=== PATIENT | female | born 1945 | race Caucasian/White ===

== ENCOUNTER 2020-04-15 08:42 | Emergency (ER) | payer OTHER ==
--- OUTSIDE RECORDS SUMMARY | 2020-04-15 09:13 | XMS REPORT | Clinical Summary ---
:1945 Author Organization [facility] Address [address] [place] [address] Care Team Providers Name Role Phone Clarissa Bolaños MD Primary Care Provider Allergies Active Allergy Reactions Severity Noted Date Comments Oxycodone-Acetaminophen Itching High 04/11/2020 Eileen re body itching Sulfur GI Intolerance High 04/11/2020 Vomiting Medications Medication Sig Dispensed Refills Start Date End Date Status atenoloL (TENORMIN) Take 25 mg by 0 Active 25 MG tablet mouth every morning. losartan (COZAAR) Take 100 mg 0 Active 100 MG tablet by mouth every evening. spironolactone Take 50 mg by 0 A ctive (ALDACTONE) 50 MG mouth every tablet morning. amLODIPine (NORVASC) Take 10 mg by 0 Active 10 mg tablet mouth nightly. omeprazole Take 20 mg by 0 Activ e (PriLOSEC) 20 MG mouth capsule nightly. ARIPiprazole Take 10 mg by 0 Act dk (ABILIFY) 10 MG mouth tablet nightly. lamoTRIgine Take 250 mg 0 Active (LaMICtal) 100 MG by mouth tablet nightly. levothyroxine Take 50 mcg 0 Acti ve (SYNTHROID) 50 mcg by mouth tablet daily. atorvastatin Take 10 mg by 0 Act dk (LIPITOR) 10 mg mouth tablet nightly. aspirin 325 MG Take 325 mg 0 Act dk tablet by mouth daily. zinc acetate 50 mg Take 1 0 A ctive (zinc) capsule capsule by mouth daily. clopidogreL (PLAVIX) Take 1 tablet 30 tablet 0 04/15/202004/05 Active 75 mg tablet (75 mg total) by mouth daily. clopidogreL (PLAVIX) Take 1 tablet 30 tablet 11 04/15/202004/05 Discontinued 75 mg tablet (75 mg total) by mouth daily. Active Problems Problem Noted Date Bilateral carotid artery occlusion 04/12/2020 Encounters Date Type Specialty Care Team Description 04/12/2020 Surgery Procedural Angelito Bolaños Angiogram carot id Cardiology MD Clarissa bilateral 04/12/2020 - Hospital Encounter General Internal Angelito Bolaños Bilat eral carotid 04/14/2020 Medicine MD Clarissa artery occlusion Mario Valdez MD 04/12/2020 Travel 04/10/2020 Lab Lab Angelito Bolaños SOB (Eder MD breath) 04/10/2020 Travel 04/10/2020 Community Orders ADMIN Angelito Bolaños (joselinen Kindra MD breath) (Primar y Dx) after 04/15/2019 Surgical History Surgery Date Site/Laterality Comments FEMORAL ARTERY - FEMORAL ARTERY BYPASS GRAFT CHOLECYSTECTOMY HYSTERECTOMY Medical History Medical History Date Comments Carotid artery occlusion Hypertension Hyperlipidemia Disease of thyroid gland Social History Tobacco Use Types Packs/Day Years Used Date Former Smoker Smokeless Tobacco: Never Used Alcohol Use Drinks/Week oz/Week Comments Never Alcohol Habits Answer Date Recorded How often do you have a drink containing alcohol? Never 04/12/2020 How many drinks containing alcohol do you have on a typical Not asked day when you are drinking? How often do you have six or more drinks on one occasion? No t asked Sex Assigned at Date Recorded Not on file Job Start Date Occupation Industry Not on file Not on file Not on file COVID-19 Exposure Response Date Recorded In the last month, have you been in contact with No / Unsure 04/12/2020 5:11 AM PRIMARY TEACHER someone who was confirmed or suspected to have Coronavirus / COVID-19? Last Filed Vital Signs Vital Sign Reading Time Taken Comments Blood Pressure 145/59 04/14/2020 11:22 AM PRIMARY TEACHER Pulse 64 04/14/2020 11:22 AM PRIMARY TEACHER Temperature 37.5 C (99.5 F) 04/14/2020 11:22 AM PRIMARY TEACHER Respiratory Rate 20 04/14/2020 11:22 AM PRIMARY TEACHER Oxygen Saturation 98% 04/14/2020 11:22 AM PRIMARY TEACHER Inhaled Oxygen Concentration - - Weight 67.6 kg (149 lb) 04/12/2020 5:25 AM PRIMARY TEACHER Height 157.5 cm (5' 2") 04/12/2020 5:25 AM PRIMARY TEACHER Body Mass Index 27.25 04/12/2020 5:25 AM PRIMARY TEACHER Plan of Treatment Health Maintenance Due Date Last Done Comments COVID-19 VACCINE (#1) 1959 SHINGLES VACCINES (#1) 1993 65+ PNEUMOCOCCAL VACCINE (1 of 1 - PPSV23) 2008 INFLUENZA VACCINE 11/04/2019 Procedures Procedure Name Priority Date/Time Associated Comments Diagnosis POTASSIUM LEVEL Routine 04/14/2020 6:15 Results for this AM PRIMARY TEACHER procedure are i n the results section. ESTIMATED GFR Routine 04/14/2020 1:20 Results fo r this AM PRIMARY TEACHER procedure are i n the results section. BASIC METABOLIC PANEL Routine 04/14/2020 1:20 Re sults for this AM PRIMARY TEACHER procedure are i n the results section. CBC HEMOGRAM Routine 04/14/2020 1:20 Results for this AM PRIMARY TEACHER procedure are i n the results section. ESTIMATED GFR Routine 04/13/2020 5:30 Results fo r this AM PRIMARY TEACHER procedure are i n the results section. HC COMPLETE BLD COUNT Routine 04/13/2020 5:30 Re sults for this W/AUTO DIFF AM PRIMARY TEACHER procedure are i n the results section. COMPREHENSIVE Routine 04/13/2020 5:30 Results fo r this METABOLIC PANEL AM PRIMARY TEACHER procedure ar e in the results section. T4, FREE Routine 04/13/2020 5:30 Results for this AM PRIMARY TEACHER procedure are i n the results section. THYROID STIMULATING Routine 04/13/2020 5:30 Resu lts for this HORMONE AM PRIMARY TEACHER procedure are i n the results section. CBC HEMOGRAM Routine 04/13/2020 5:30 Results for this AM PRIMARY TEACHER procedure are i n the results section. CV CAROTID ARTERY Routine 04/12/2020 9:24 Bilateral carotid STENT W EMBOLIC AM PRIMARY TEACHER artery occlusion PROTECTION Procedure Note - Interface, Radiology Results In - 04/12/2020 8:07 PM PRIMARY TEACHER OPERATIVE NOTE SURGEON: Mario Valdez MD INFORMATICIST: Guicho Purdy MD. TITLE OF OPERATION: 1. Percutaneous translumina l angioplasty with stent, right common to internal carotid artery. 2. Left femoral angiogram w ith percutaneous closure device. PREOPERATIVE DIAGNOSIS: Symptomatic carotid artery o cclusive disease. POSTOPERATIVE DIAGNOSIS: Symptomatic carotid artery o cclusive disease. ANESTHESIA: Conscious sedation with Vers ed and fentanyl. ESTIMATED BLOOD LOSS: 20 mL. COMPLICATIONS: None. OPERATIVE COURSE: The patient is a 75-year-old woman under the care of my partner, Dr. Angelito Bolaños. She underwent a diagn ostic carotid angiography by Dr. Bolaños prior to my arriving in the catheterizat ion laboratory. She had had symptoms, which were suspicious, but not diagnost ic for carotid artery disease and noninvasive evaluation done as an outpat ient suggested severe to critical right internal carotid artery stenosis. As a result, she was advised to undergo carotid angiography and possible int ervention. I had evaluated the patient in the office and explained the phy siology, anatomy and recommended treatment options. She came to the catheterizat ion laboratory after being seen by stroke neurology service. Dr. Bolaños performed diagnostic selective carotid and intracranial angiography via left femoral approach prior to my arrival. I was called to the catheterization lab and revi ewed the studies. The patient does indeed have a 95% stenosis of the ostial t o proximal right internal carotid artery with minimal intracranial flow pr edominantly in the middle cerebral artery. There was no evidence of intracran ial aneurysm or significant distal intracranial carotid artery disease. As a result, I felt that she would be a good candidate for percutaneous interventio n and proceeded accordingly. The patient received a total of 9000 units of heparin with ACT greater than 250 seconds prior to start of th e procedure. The 4-Malawian arterial sheath, which had been inserted for diagno stic angiograms was exchanged for a 6-Malawian shuttle sheath. Utilizing an H1 cat heter and a 0.035 Wholey wire, the right distal common carotid was successfu lly cannulated and the sheath advanced to the distal common carotid. The dilator and wire were removed. Additional preprocedural angiograms were taken. Once the ACT was confirmed to be greater than 250 seconds, a NAV6 filter was s uccessfully placed in the very distal internal carotid artery and successfu lly deployed. The lesion was primarily stented with an 8 x 6 x 30 mm Xact stent and postdilated with a 5.5 x 15 mm noncompliant balloon. This resulted in f ull stent expansion, CHETAN-3 distal flow, no proximal or distal dissection or embo lization. Multiple orthogonal shots both extracranial and intracrania l were taken with the wire in place and subsequently with the wire removed. Agai n, there was excellent flow with no evidence of angiographic complications. The sheath was then withdrawn to the left external iliac artery and angiogram c onfirmed proper arteriotomy placement. Thus, the vessel was successfully clos ed with a 6-Malawian Perclose ProGlide suture system with good hemostasis achieve d. The patient did receive 600 mg of clopidogrel and 325 mg of aspirin prior to leaving the catheterization laboratory. She was transferred to the PACU for observation following which she will be admitted overnight for hemodynamic ob servation with probable discharge tomorrow morning. Overall, she tolerated the p rocedure well. ACTIVATED CLOTTING Routine 04/12/2020 8:37 AM Re sults for this TIME PRIMARY TEACHER procedure are i n the results section . ECG PRE/POST OP STAT 04/12/2020 5:37 AM Resul ts for this PRIMARY TEACHER procedure are i n the results section . COVID-19 QUALITATIVE Routine 04/10/2020 10:28 AM SOB (shortnes s Results for this PCR PRIMARY TEACHER of breath) procedure are i n the results section . after 04/15/2019 Results Potassium level (04/14/2020 6:15 AM PRIMARY TEACHER) Pathologist Sig nature Potassium 4.2 3.5 - 5.0 mEq/L [facility] L Specimen Plasma Performing Organization Address City/[facility] Phon e Number [facility] DEPARTMENT OF PATHOLOGY AND [address] [place] [address] [address] Estimated GFR (04/14/2020 1:20 AM PRIMARY TEACHER)Only the most recent of2 resultswithin the time period is included. Estimated GFR 61 mL/min/1.73 [facility] Comment: m2 HOSPITAL Catergory Units Interpretation G1 >=90 Normal or high G2 60-89 Mildly decreased G3a 45-59 Mildly to moderately decreas ed G3b 30-44 Moderately to severely decre ased G4 15-29 Severely decreased G5 <15 Kidney failure The eGFR was calculated using the Chronic Kidney Disea se Epidemiology Collaboration (CKD-EPI) equation. Interpretation is based on recommendations of the National Kidney Foundation-Kidney Disease Outcomes Harshad lity Initiative (NKF-KDOQI) published in 2014. Specimen Plasma Performing Organization Address City/[facility] Phon e Number [facility] DEPARTMENT OF PATHOLOGY AND [address] [place] [address] [phone] [place] [address] CBC hemogram (04/14/2020 1:20 AM PRIMARY TEACHER)Only the most recent of2 resultswithin the time period is included. Pathologist [facility] WBC 6.03 4.50 - 11.00 k/uL [facility] RBC 2.96 (L) 4.20 - 5.50 m/uL [facility] HGB 9.8 (L) 12.0 - 16.0 g/dL [facility] HCT 30.8 (L) 37.0 - 47.0 % [facility] MCV 104.1 (H) 82.0 - 100.0 fL [facility] MCH 33.1 27.0 - 34.0 pg [facility] MCHC 31.8 31.0 - 37.0 g/dL [facility] RDW - SD 45.2 37.0 - 55.0 fL [facility] MPV 11.1 8.8 - 13.2 fL [facility] Platelet count 159 150 - 400 k/uL [facility] Nucleated RBC 0.00 /100 WBC [facility] Specimen Plasma Performing Organization Address City/State/ZIP Code Phon e Number [facility] DEPARTMENT OF PATHOLOGY AND [address] [place] [address] [phone] [address] Basic metabolic panel (04/14/2020 1:20 AM PRIMARY TEACHER) [facility] Sodium 141 135 - 148 mEq/L [facility] Potassium SEE COMMENT 3.5 - 5.0 mEq/L [facility] Comment: HOSPITAL Footnote--------- Unable to perform testing, specimen is HEMOLYZED. Re collect requested for _K__ (tests). NATE [id number] (name /location) notified by PXN_ (tech ID) at 04/14/2020 02:37 (date/time ). Credit issued. Chloride 113 (H) 98 - 112 mEq/L [facility] CO2 20 (L) 24 - 31 mEq/L [facility] Anion gap 8@ANIO 7 - 15 mEq/L [facility] BUN 13 8 - 23 mg/dL [facility] Creatinine 0.91 (H) 0.50 - 0.90 [facility] mg/dL HOSPITAL Glucose 97 65 - 99 mg/dL [facility] Calcium 8.2 (L) 8.8 - 10.2 [facility] mg/dL HOSPITAL Specimen Plasma Performing Organization Address City/[facility] Phon e Number [facility] DEPARTMENT OF PATHOLOGY AND [address] [place] [address] [phone] [address] CBC with platelet and differential (04/13/2020 5:30 AM PRIMARY TEACHER) WBC 6.54 4.50 - 11.00 [facility] k/uL HOSPITAL RBC 3.13 (L) 4.20 - 5.50 [facility] m/uL [facility] HGB 10.4 (L) 12.0 - 16.0 [facility] gdL [facility] HCT 33.2 (L) 37.0 - 47.0 % [facility] MCV 106.1 (H) 82.0 - 100.0 [facility] MCH 33.2 27.0 - 34.0 pg [facility] MCHC 31.3 31.0 - 37.0 [facility] g/[facility] RDW - SD 47.3 37.0 - 55.0 fL [facility] MPV 11.2 8.8 - 13.2 [facility] Platelet count 171 150 - 400 k/uL [facility] Nucleated RBC 0.00 /100 WBC [facility] Neutrophils 61.7 39.0 - 69.0 % [facility] Lymphocytes 25.4 25.0 - 45.0 % [facility] Monocytes 9.5 0.0 - 10.0 % [facility] Eosinophils 2.6 0.0 - 5.0 % [facility] Basophils 0.3 0.0 - 1.0 % [facility] Immature granulocytes 0.5Comment: 0.0 - 1.0 % [facility] "Immature [facility] granulocytes" (promyelocytes , myelocytes, metamyelocytes ) Specimen Plasma Performing Organization Address City/[facility] Phon e Number [facility] DEPARTMENT OF PATHOLOGY AND [address] [place] [address] [phone] [address] Thyroid stimulating hormone (04/13/2020 5:30 AM PRIMARY TEACHER) Pathologist Sig nature TSH 2.15 0.27 - 4.20 uIU/mL [facility] Specimen Plasma Performing Organization Address City/[facility] Phon e Number [facility] DEPARTMENT OF PATHOLOGY AND [address] [place] [address] [phone] [address] T4, free (04/13/2020 5:30 AM PRIMARY TEACHER) Pathologist Sig nature T4, free 1.0 0.9 - 1.7 ng/dL [facility] L Specimen Plasma Performing Organization Address City/[facility] Phon e Number [facility] DEPARTMENT OF PATHOLOGY AND [address] [place] [address] [phone] [address] Comprehensive metabolic panel (04/13/2020 5:30 AM PRIMARY TEACHER) Sodium 140 135 - 148 [facility] mEq/L [facility] Potassium 4.2 3.5 - 5.0 [facility] mEq/L [facility] Chloride 113 (H) 98 - 112 [facility] mEq/L [facility] CO2 17 (L) 24 - 31 mEq/L [facility] Anion gap 10@ANIO 7 - 15 mEq/L [facility] BUN 19 8 - 23 mg/dL [facility] Creatinine 1.01 (H) 0.50 - 0.90 [facility] mg/dL [facility] Glucose 97 65 - 99 mg/dL [facility] Calcium 8.5 (L) 8.8 - 10.2 [facility] mg/dL [facility] Protein 5.8 (L) 6.3 - 8.3 [facility] Comment: g/dL [facility] - [place] 4.6-7.0 g/dL 1 week 4.4-7.6 g/dL 7 months-1year 5.1-7.3 g/dL 1-2 years 5.6-7.5 g/dL >3 years 6.0-8.0 g/dL 18-150 6.3-8.3 g/dL Albumin 2.9 (L) 3.5 - 5.0 [facility] g/dL [facility] A/G ratio 1.0 0.7 - 3.8 [facility] Alkaline phosphatase 110 (H) 35 - 104 U/L [facility] AST 23 10 - 35 U/L [facility] ALT 20 5 - 50 U/L [facility] Total bilirubin 0.3 0.0 - 1.2 [facility] mg/dL HOSPITAL Specimen Plasma Performing Organization Address [facility] Phon e Number [facility] DEPARTMENT OF PATHOLOGY AND [address] [place] [address] [phone] [address] Activated clotting time (04/12/2020 8:37 AM PRIMARY TEACHER) Activated clotting 252 (H) 96 - 152 sec [facility] time Comment: HOSPITAL Prom Burn Off Operator Name: Garcia Davidson Device ID: [id number] Specimen Performing Organization Address [facility] Phon e Number [facility] DEPARTMENT OF PATHOLOGY AND [address] [place] [address] [phone] [address] ECG Pre/Post Op (04/12/2020 5:37 AM PRIMARY TEACHER) Pathologist Sig nature Ventricular rate 62 [facility] Atrial rate 62 [facility] ND interval 190 [facility] QRSD interval 86 [facility] QT interval 428 [facility] QTC interval 434 [facility] P axis 1 42 [facility] QRS axis 1 7 [facility] T wave axis 29 [facility] EKG impression Normal sinus rhythm-Low [facility] voltage QRS-Borderline ECG-No previous ECGs available-Electronicall y Signed By Jazmín JORDAN, Eric Tirado ([id number]) on 04/12/2020 8:49:09 PM Specimen Narrative Performed At This result has an attachment that is no t available. Performing Organization Address [facility] Phon e Number [facility] MUSE [address] [place] [phone] COVID-19 qualitative PCR (04/10/2020 10:28 AM PRIMARY TEACHER) Interpretation Negative results do not prec lude 2019-nCoV infection and should not be used as the sole basis for treatment or other patient management decisions. Negative results must be combined with clinical observations, patient history, and epidemiological [facility] information. [facility] COVID-19 qualitative Not-Detected Not-Detecte [facility] PCR result d [facility] COVID-19 qualitative See link below for [facility] PCR PDF Lab CONFUCIANISM ReportComment: Case HOSPITAL Number: [id number] Specimen Nasopharyngeal swab Performing Organization Address City/State/ZIP Code Phon e Number [facility] DEPARTMENT OF PATHOLOGY AND [address] [place], [place] [address] GENOMIC MEDICINE [facility] [address] [place] [address] [facility] after 04/15/2019 Insurance Payer Benefit Plan / Subscriber ID Effective Dates Phone Addre ss Type Group MEDICARE MEDICARE PART A [id number] 2003-Present [facility] [place] Medicare AND B Advance Directives For more information, please contact: [phone] Type Date Recorded Patient Controls Engineer Explanati on Advance Directives, Living Will and Medical Power of Atm Manager
--- OUTSIDE RECORDS SUMMARY | 2020-04-15 09:14 | XMS REPORT | Continuity of Care Document ---
:1945 Author Organization [facility] t Address [facility] 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 04-12 Methodi artery artery 00:00: st occlusion occlusion 00 Allergies, Adverse Reactions, Alerts Allergy Allergy Status Severity Reaction(s) Onset Inactive Treating Comm ents Source Name Type Date Date Clinician Oxycodon Propensi Active Itching Severe [place] on e-Acetam ty to 04-11 body Methodi inophen adverse 00:00: itching st reaction 00 s to drug Sulfur Propensi Active GI Vomiting [place] ty to Intolerance 04-11 Metho di adverse 00:00: st reaction 00 s to drug Social History Social Habit Start Date Stop Date Quantity Comments Source History [facility] Meth odist Alcohol Std Drinks History [facility] Meth odist Alcohol Binge Sex Assigned At [facility] ethodist Exposure to Not sure [place] Metho dist SARS-CoV-2 (event) Tobacco use and 2020-04-12 2020-04-12 Never used Migel Melgoza ethodist exposure 00:00:00 00:00:00 Alcohol intake 2020-04-12 2020-04-12 Lifetime Migel Sanders thodist 00:00:00 00:00:00 non-drinker (finding) History SDOH 2020-04-12 2020-04-12 1 [place] Meth odist Alcohol Frequency 00:00:00 00:00:00 Smoking Status Start Date Stop Date Source Former smoker 2020-04-12 00:00:00 2020-04-12 00:00:00 Migel Scott Medications Ordered Filled Start Stop Current Ordering Indication Dosage Frequency Signature Comments Components Source Medication Medication Date Date Medication? Clinician (SIG) Name Name clopidogreL 2021- Yes 75mg QD Take 1 Gene ston (PLAVIX) 75 04-15 tablet (75 M ethodi mg tablet 00:00: 23:59 mg total) st 00 :00 by mouth daily. clopidogreL 2020- No 75mg QD Take 1 Gene ston (PLAVIX) 75 04-15 tablet (75 M ethodi mg tablet 00:00: 00:00 mg total) st 00 :00 by mouth daily. atenoloL Yes 25mg QD Take 25 mg Gene ston (TENORMIN) 1-10 by mouth Metho di 25 MG 12:48: every st tablet 29 morning. losartan Yes 100mg QD Take 100 [place] (COZAAR) 1-10 mg by Methodi 100 MG 12:48: mouth st tablet 29 every evening. spironolact Yes 50mg QD Take 50 mg [place] one 1-10 by mouth Methodi (ALDACTONE) 12:48: every st 50 MG 29 morning. tablet amLODIPine Yes 10mg QD Take 10 mg [place] (NORVASC) 1-10 by mouth Method i 10 mg 12:48: nightly. st tablet 29 omeprazole Yes 20mg QD Take 20 mg [place] (PriLOSEC) 1-10 by mouth Metho di 20 MG 12:48: nightly. st capsule 29 ARIPiprazol Yes 10mg QD Take 10 mg [place] e (ABILIFY) 1-10 by mouth Meth ritu 10 MG 12:48: nightly. st tablet 29 lamoTRIgine Yes 250mg QD Take 250 [place] (LaMICtal) 1-10 mg by Methodi 100 MG 12:48: mouth st tablet 29 nightly. levothyroxi Yes 50ug QD Take 50 Gene ston ne 1-10 mcg by Methodi (SYNTHROID) 12:48: mouth st 50 mcg 29 daily. tablet atorvastati Yes 10mg QD Take 10 mg [place] n (LIPITOR) 1-10 by mouth Meth ritu 10 mg 12:48: nightly. st tablet 29 aspirin 325 Yes 325mg QD Take 325 [place] MG tablet 1-10 mg by Methodi 12:48: mouth st 29 daily. zinc Yes 1{capsu QD Take 1 L[place] acetate 50 1-10 le} capsule by Met hodi mg (zinc) 12:48: mouth st capsule 29 daily. Vital Signs Vital Name Observation Time Observation Value Comments Source Systolic blood 2020-04-14 11:22:44 145 mm[Hg] Rubito n Faith pressure Diastolic blood 2020-04-14 11:22:44 59 mm[Hg] Balbir on Faith pressure Heart rate 2020-04-14 11:22:44 64 /min Migel Scott Body temperature 2020-04-14 11:22:44 37.5 Jennifer Rubi ton Faith Respiratory rate 2020-04-14 11:22:44 20 /min Rubi ton Faith Oxygen saturation in 2020-04-14 11:22:44 98 /min Migel Scott Arterial blood by Pulse oximetry Body height 2020-04-12 05:25:00 157.5 cm Migel Scott Body weight 2020-04-12 05:25:00 67.586 kg iMgel Scott BMI 2020-04-12 05:25:00 27.25 kg/m2 Migel Scott Procedures Procedure Date / Time Performed Performing Clinician [facility]ly [facility] e POTASSIUM LEVEL 2020-04-14 06:15:00 Mario Valdez ethodi CBC HEMOGRAM 2020-04-14 01:20:00 Guicho Purdy thodist BASIC METABOLIC PANEL 2020-04-14 01:20:00 Mario Valdez ESTIMATED GFR 2020-04-14 01:20:00 Mario Valdez M ethodist CBC HEMOGRAM 2020-04-13 05:30:00 Guicho Purdy Migel Me thodist THYROID STIMULATING 2020-04-13 05:30:00 Liya Bolaños HORMONE T4, FREE 2020-04-13 05:30:00 Liya Bolaños COMPREHENSIVE METABOLIC 2020-04-13 05:30:00 Mami, Liya Scott PANEL HC COMPLETE BLD COUNT 2020-04-13 05:30:00 Mami, Liya Scott W/AUTO DIFF ESTIMATED GFR 2020-04-13 05:30:00 Liya Bolaños CV CAROTID ARTERY STENT W 2020-04-12 09:24:55 Mami, Liya Scott EMBOLIC PROTECTION ACTIVATED CLOTTING TIME 2020-04-12 08:37:00 Liya Bolaños ECG PRE/POST OP 2020-04-12 05:37:11 Liya Bolaños COVID-19 QUALITATIVE PCR 2020-04-10 10:28:00 Liya Bolaños Plan of Care Planned Activity Planned Date Details Comments Source Future Scheduled 2019-11-04 INFLUENZA VACCINE Melba Scott Test 00:00:00 [code = INFLUENZA VACCINE] Future Scheduled 2008 65+ PNEUMOCOCCAL Migel Scott Test 00:00:00 VACCINE (1 of 1 - PPSV23) [code = 65+ PNEUMOCOCCAL VACCINE (1 of 1 - PPSV23)] Future Scheduled 1993 SHINGLES VACCINES (#1) Maeve Scott Test 00:00:00 [code = SHINGLES VACCINES (#1)] Future Scheduled 1959 COVID-19 VACCINE (#1) Tonio Scott Test 00:00:00 [code = COVID-19 VACCINE (#1)] Encounters Start End Encounter Admission Attending Care Care Encounter Source Date/Time Date/Time Type Type Clinicians Facility Department ID 2020-04-12 2020-04-14 Inpatient [place] [id number] [place] [address] 00:00:00 00:00:00 MARIO [address] 2020-04-10 2020-04-10 Outpatient HUST, [facility] [id number] [place] 00:00:00 00:00:00 LIYA [address] Results Test Description Test Time Test Comments Results Result Comments Source Potassium level 2020-04-14 08:52:04 Test Item Value Reference Range Interpretation Comme nts Potassium (test code = 2823-3) 4.2 3.5- 5.0 mEq/L [place] [facility] [id number] 02:37:27 Test Item Value Reference Range Interpretation Comments Sodium (test code = 141 135- 148 mEq/L 2951-2) Potassium (test code = SEE COMMENT 3.5- 5.0 mEq/L Bridgett tnote---------U 2823-3) nable to perfor m testing, specim en is HEMOLYZED. Recollect requested for _ K__ (tests). NATE LOMBARDI/WT1Vaughn (name/location) notified by PXN _ (tech ID) at 04/14/2020 02: 37 (date/time). Credit issued. Chloride (test code = 113 98- 112 mEq/L H 2074-0) CO2 (test code = 2027-) 20 24- 31 mEq/L L Anion gap (test code = 8@ANIO 7- 15 mEq/L 79175-5) BUN (test code = 3094-0) 13 mg/dL 8-23 Creatinine (test code = 0.91 mg/dL 0.5-0.9 H 2160-0) Glucose (test code = 97 mg/dL 65-99 2345-7) Calcium (test code = 8.2 mg/dL 8.8-10.2 L 15560-3) Lab Interpretation (test Abnormal code = 89011-6) [place] [facility] [id number] 02:37:27 Test Item Value Reference Range Interpretation Comments Estimated GFR (test 61 mL/min/1.73 m2 Caterg ory Units code = 5488) InterpretationG 1 >=90 Normal or highG2 60-89 Mildly lrqeydnxwL3o 45-59 Mildly to mode rately scnngvhrgS7a 30-44 Moderately to severely decreasedG4 15-29 Severely decre asedG5 <15 Kidn ey failureThe eGFR was calculated oliver simpson the Chronic Kidney Disease Epidemiology Co llaboration (CKD-EPI) equat ion. Interpretation is based on recommendations of the National Kidney Foundation-Kidn ey Disease Outcomes Qualit y Initiative (NKF-KDOQI) pub lished in 2014. Migel [facility] [id number] 02:05:12 Test Item Value Reference Range Interpretation Comments WBC (test code = 72127-4) 6.03 4.50- 11.00 k/uL RBC (test code = 58410-7) 2.96 m/uL 4.2-5.5 L HGB (test code = 718-7) 9.8 g/dL 12-16 L HCT (test code = 4544-3) 30.8 % 37-47 L MCV (test code = 787-2) 104.1 fL 82-100 H MCH (test code = 785-6) 33.1 pg 27-34 MCHC (test code = 786-4) 31.8 g/dL 31-37 RDW - SD (test code = 39436-5) 45.2 fL 37-55 MPV (test code = 88900-7) 11.1 fL 8.8-13.2 Platelet count (test code = 159 150- 400 k/uL 08888-0) Nucleated RBC (test code = 0.00 /100 WBC 91957-9) Lab Interpretation (test code = Abnormal 92579-2) Lainez JoiistT4, [id number] 07:53:52 Test Item Value Reference Range Interpretation Comments T4, free (test code = 3024-7) 1.0 ng/dL 0.9-1.7 [facility] [id number] 07:53:52 Test Item Value Reference Range Interpretation Comments TSH (test code = 3016-3) 2.15 0.27- 4.20 uIU/mL [facility] [id number] 07:48:21 Test Item Value Reference Range Interpretation Comments Sodium (test code = 140 135- 148 mEq/L 2951-2) Potassium (test code = 4.2 3.5- 5.0 mEq/L 2823-3) Chloride (test code = 113 98- 112 mEq/L H 2075-0) CO2 (test code = 2027-9) 17 24- 31 mEq/L L Anion gap (test code = 10@ANIO 7- 15 mEq/L 06136-7) BUN (test code = 3094-0) 19 mg/dL 8-23 Creatinine (test code = 1.01 mg/dL 0.5-0.9 H 2160-0) Glucose (test code = 97 mg/dL 65-99 2345-7) Calcium (test code = 8.5 mg/dL 8.8-10.2 L 10779-6) Protein (test code = 5.8 g/dL 6.3-8.3 L -[place] n 2885-2) 4.6-7.0 g/dL1 week 4.4-7 .6 g/dL7 months-1y ear 5.1-7 .3 g/dL1-2 years 5.6-7 .5 g/dL>3 years 6.0-8 .0 g/fH74-189 6.3-8 .3 g/dL Albumin (test code = 2.9 g/dL 3.5-5 L 1751-7) A/G ratio (test code = 1.0 0.7-3.8 1759-0) Alkaline phosphatase 110 U/L 35-104 H (test code = 6768-6) AST (test code = 1919-8) 23 U/L 10-35 ALT (test code = 1742-6) 20 U/L 5-50 Total bilirubin (test 0.3 mg/dL 0-1.2 code = 1974-2) Lab Interpretation (test Abnormal code = 77101-4) [facility] with platelet and [id number] 07:43:56 Test Item Value Reference Range Interpretation Comments WBC (test code = 25110-0) 6.54 4.50- 11.00 k/uL RBC (test code = 81934-4) 3.13 m/uL 4.2-5.5 L HGB (test code = 718-7) 10.4 g/dL 12-16 L HCT (test code = 4544-3) 33.2 % 37-47 L MCV (test code = 787-2) 106.1 fL 82-100 H MCH (test code = 785-6) 33.2 pg 27-34 MCHC (test code = 786-4) 31.3 g/dL 31-37 RDW - SD (test code = 47.3 fL 37-55 45678-6) MPV (test code = 69362-9) 11.2 fL 8.8-13.2 Platelet count (test code 171 150- 400 k/uL = 65636-2) Nucleated RBC (test code 0.00 /100 WBC = 77017-5) Neutrophils (test code = 61.7 % 39-69 21529-6) Lymphocytes (test code = 25.4 % 25-45 78880-9) Monocytes (test code = 9.5 % 0-10 97228-3) Eosinophils (test code = 2.6 % 0-5 27125-1) Basophils (test code = 0.3 % 0-1 07515-6) Immature granulocytes 0.5 % 0-1 "Immat ure (test code = 30242-4) granul ocytes" (promyelocytes, myelocytes, metamyelocytes) Lab Interpretation (test Abnormal code = 28710-9) Migel TamezistECG Pre/Post [id number] 20:49:13 Test Item Value Reference Range Interpretation Comments Ventricular rate (test 62 code = 253) Atrial rate (test code = 62 255) [place] interval (test code = 190 266) QRSD interval (test code 86 = 260) QT interval (test code = 428 264) QTC interval (test code 434 = 265) P axis 1 (test code = 42 267) QRS axis 1 (test code = 7 268) T wave axis (test code = 29 270) EKG impression (test Normal sinus code = 273) rhythm-Low voltage QRS-Borderline ECG-No previous ECGs available-Electronica lly Signed By Eric Noyola MD ([id number]) on 04/12/2020 8:49:09 PM Migel [facility] clotting [id number] 08:42:34 Test Item Value Reference Range Interpretation Comments Activated clotting time 252 96- 152 sec H Oper ator Name: Garcia (test code = 5298) IsidrodenisAyaan ice ID: [id number] Lab Interpretation (test Abnormal code = 06645-1) Migel TamezistCOVID-19 qualitative [id number] 21:38:48 Test Item Value Reference Range Interpretation Comments Interpretation (test Negative results do code = 7429363) not preclude 2019-nCoV infection and should not be used as the sole basis for treatment or other patient management decisions. Negative results must be combined with clinical observations, patient history, and epidemiological information. COVID-19 qualitative Not-Detected Not-Detected PCR result (test code = 25799-2) COVID-19 qualitative See link below for C ase Number: PCR (test code = PDF Lab Report [id number]) Migel Scott
[2020-04-15] MEDS ORDERED: KETOROLAC 30 MG/ML INJ ONE ×2 (09:25→09:29)
[2020-04-15] MEDS ORDERED: FAMOTIDINE 20 MG/2 ML VIAL IV ONE (09:25)
[2020-04-15] MEDS ORDERED: METHOCARBAMOL 1,000 MG/10 ML VIAL IV ONE (09:25)
[2020-04-15] MEDS ORDERED: ONDANSETRON 4 MG/2 ML VIAL ONE (09:25)
[2020-04-15] MEDS ORDERED: NA CHLORIDE 0.9% 100 ML ONE (09:25)
[2020-04-15] MEDS ORDERED: METHYLPREDNISOLONE 125 MG INJ ONE (09:25)
--- NOTE | 2020-04-15 09:35 | RAD REPORT ---
EXAM DESCRIPTION: CTSpine Lumbar Wo Con04/15/2020 9:23 am CLINICAL HISTORY: Left hip radiculopathy COMPARISON: None TECHNIQUE: Computed axial tomography lumbar spine was obtained with coronal and sagittal reconstruct ion. All CT scans are performed using dose optimization technique as appropriate and may include automated exposure control or mA/KV adjustment according to patient size. FINDINGS: No fracture is seen. No dislocation is noted. Left lateral disc bulges L1-2 and L2-3. Disc bulge, ligamentum flavum facet hypertrophy L3-4 narrows the thecal sac to 9 millimeters. Slight anterior subluxation L4 on L5. Disc bulge, ligamentum flavum and facet hypertrophy narrow the thecal sac 9 millimeters. Mild narrowing of the neural foramina bilaterally Mild spondylosis L5-S1 IMPRESSION: Negative for a lumbar fracture. 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 If patient's symptoms persist MRI lumbar spine would be recommended
--- NOTE | 2020-04-15 11:03 | ER ---
Nurse's Notes [facility] Name: Stephanie Carballo Age: 75 yrs Sex: Female : 1945 Arrival Date: 04/15/2020 Time: 08:48 Bed 19 Private MD: Diagnosis: Low back pain;Muscle spasm of back;Muscle spasm Presentation: 04/15 08:53 Chief complaint: Patient states: low back pain that radiates to L hip/ buttock area ss that began Wednesday before she was discharged from [facility]. Pt reports that when she was being discharged, she could barely stand. They gave her Tylenol which didn't help. Pt also reports another doctor had called her in Tramadol which has not helped her pain at all either. Coronavirus screen: Client denies travel out of the [place] in the last 14 days. Initial Sepsis Screen: Does the patient meet any 2 criteria? No. Patient's initial sepsis screen is negative. Does the patient have a suspected source of infection? No. Patient's initial sepsis screen is negative. Onset of symptoms was April 13, 2020. 08:53 Acuity: JIMBO 3 ss 08:57 Ebola Screen: No symptoms or risks identified at this time. Risk Assessment: Do you ph want to hurt yourself or someone else? Patient reports no desire to harm self or others. 08:57 Method Of Arrival: Wheelchair ph Historical: - Allergies: 09:06 Percocet; ss 09:06 Sulfa (Sulfonamide Antibiotics); ss - Immunization history:: Adult Immunizations unknown. - Social history:: Smoking status: Patient denies any tobacco usage or history of. Screenin:57 Abuse screen: Denies threats or abuse. Denies injuries from another. Nutritional ph screening: No deficits noted. Tuberculosis screening: No symptoms or risk factors identified. Fall Risk None identified. Assessment: 08:57 Reassessment: Dr Paula at bedside to assess pt. ph 09:15 General: Appears in no apparent distress. uncomfortable, well groomed, Behavior is ph calm, cooperative, appropriate for age. Pain: Complains of pain in low back area Pain radiates to left gluteus rodrigo. Neuro: Level of Consciousness is awake, alert, obeys commands, Oriented to person, place, time, situation. Cardiovascular: Capillary refill < 3 seconds in bilateral fingers Patient's skin is warm and dry. Respiratory: Airway is patent Respiratory effort is even, unlabored, Respiratory pattern is regular, symmetrical. GI: No signs and/or symptoms were reported involving the gastrointestinal system. Derm: Skin is intact, is healthy with good turgor, Skin is pink, warm \T\ dry. Musculoskeletal: Circulation, motion, and sensation intact. Range of motion: intact in all extremities. 10:30 Reassessment: Patient appears in no apparent distress at this time. Patient and/or ph family updated on plan of care and expected duration. Pain level reassessed. Patient is alert, oriented x 3, equal unlabored respirations, skin warm/dry/pink. Pt ambulated to restroom w/ no difficulty noted, report that pain is worse when changing to sitting or standing positions. Vital Signs: 09:07 Temp 98.7(TE); ph 09:30 BP 153 / 73; Pulse 73; Resp 18; Pulse Ox 98% on R/A; ph 10:32 BP 141 / 55; Pulse 63; Resp 18; Temp 97.2; Pulse Ox 96% on R/A; ph ED Course: 08:48 Patient arrived in ED. ds1 08:54 Nishant Paula MD is Attending Physician. kdr 08:57 Crystal Gonzalez RN is Primary Nurse. ph 08:58 Arm band placed on Patient placed in an exam room, on a stretcher. ph 08:58 Patient has correct armband on for positive identification. Bed in low position. Call ph light in reach. Side rails up X 1. Pulse ox on. NIBP on. Door closed. Noise minimized. Warm blanket given. 09:05 Triage completed. ss 09:23 CT Lumbar Spine Wo Con In Process Unspecified. EDMS 10:00 Inserted saline lock: 22 gauge in right antecubital area, using aseptic technique. ph 11:00 No provider procedures requiring assistance completed. ph 11:05 IV discontinued, intact, bleeding controlled, No redness/swelling at site. Pressure ph dressing applied. Administered Medications: 09:58 Drug: TORadol - Ketorolac 15 mg Route: IVP; Site: right antecubital; ph 11:00 Follow up: Response: No adverse reaction; Pain is decreased ph 09:58 Drug: Pepcid 20 mg Route: IVP; Site: right antecubital; ph 11:00 Follow up: Response: No adverse reaction ph 09:59 Drug: SOLU-Medrol 80 mg Route: IVP; Site: right antecubital; ph 11:00 Follow up: Response: No adverse reaction ph 10:00 Drug: Zofran (Ondansetron) 4 mg Route: IVP; Site: right antecubital; ph 11:00 Follow up: Response: No adverse reaction ph 10:00 Drug: Robaxin 500 mg Route: IVPB; Infused Over: 1 hrs; Site: right antecubital; ph 18:08 Follow up: Response: No adverse reaction; Pain is decreased; IV Status: Completed ph infusion; IV Intake: 100ml Intake: 18:08 IV: 100ml; Total: 100ml. ph Outcome: 11:02 Discharge ordered by . kdr 11:12 Patient left the ED. ph 11:12 Discharged to home ambulatory. ph 11:12 Condition: improved 11:12 Discharge instructions given to patient, Instructed on discharge instructions, follow up and referral plans. medication usage, Demonstrated understanding of instructions, follow-up care, medications, Prescriptions given X 4. Signatures: Dispatcher [employer] EDMS Nishant Paula MD MD kdr Mario, Qian ds1 Nahomi Jin RN RN Crystal Gonzalez RN RN ph Corrections: (The following items were deleted from the chart) 18:06 10:30 Reassessment: Patient appears in no apparent distress at this time. Patient ph and/or family updated on plan of care and expected duration. Pain level reassessed. Patient is alert, oriented x 3, equal unlabored respirations, skin warm/dry/pink. ph
--- NOTE | 2020-04-15 11:03 | EDPHYS ---
Physician Documentation [facility] Name: Stephanie Carballo Age: 75 yrs Sex: Female : 1945 Arrival Date: 04/15/2020 Time: 08:48 Bed 19 Private MD: ED Physician Nishant Paula HPI: 04/15 09:09 This 75 yrs old Female presents to ER via Wheelchair with complaints of Back kdr Pain, Leg Pain. 09:09 The patient presents with pain that is acute, with no known mechanism of injury. The kdr symptoms are located in the low back. Onset: The symptoms/episode began/occurred gradually, The patient initially began to have pain on Wednesday after she completed a 24 hour supine period s/p right carotid artery stenting. Gradually between then and now, the pain has steadily worsened. The pain radiates down into her buttock on the left side. The pain radiates to the left gluteus rodrigo. Associated signs and symptoms: The patient has no apparent associated signs or symptoms. The problem was sustained from unknown cause. Modifying factors: The patient symptoms are alleviated by nothing, the patient symptoms are aggravated by any movement. Severity of symptoms: At their worst the symptoms were moderate, severe, incapacitating, in the emergency department the symptoms are unchanged. The patient has not experienced similar symptoms in the past. The patient has been recently seen by a physician: D/c yesterday from [facility]. She had been given a Tylenol of r the pain prior to discharge. Historical: - Allergies: 09:06 Percocet; ss 09:06 Sulfa (Sulfonamide Antibiotics); ss - Immunization history:: Adult Immunizations unknown. - Social history:: Smoking status: Patient denies any tobacco usage or history of. ROS: 09:09 Constitutional: Negative for fever, chills, and weight loss, Eyes: Negative for injury, kdr pain, redness, and discharge, ENT: Negative for injury, pain, and discharge, Neck: Negative for injury, pain, and swelling, Cardiovascular: Negative for chest pain, palpitations, and edema, Respiratory: Negative for shortness of breath, cough, wheezing, and pleuritic chest pain, Abdomen/GI: Negative for abdominal pain, nausea, vomiting, diarrhea, and constipation, : Negative for injury, bleeding, discharge, and swelling, MS/Extremity: Negative for injury and deformity, Skin: Negative for injury, rash, and discoloration, Neuro: Negative for headache, weakness, numbness, tingling, and seizure activity. Psych: Negative for depression, anxiety, suicide ideation, homicidal ideation, and hallucinations, Allergy/Immunology: Negative for hives, rash, and allergies, Endocrine: Negative for neck swelling, polydipsia, polyuria, polyphagia, and marked weight changes, Hematologic/Lymphatic: Negative for swollen nodes, abnormal bleeding, and unusual bruising. 09:09 Back: Positive for decreased range of motion, pain at rest, pain with movement, of the low back area. Exam: 09:09 Constitutional: This is a well developed, well nourished patient who is awake, alert, kdr and in mild distress. She moves slowly from chair to bed and caustiously while in bed Head/Face: Normocephalic, atraumatic. Eyes: Pupils equal round and reactive to light, extra-ocular motions intact. Lids and lashes normal. Conjunctiva and sclera are non-icteric and not injected. Cornea within normal limits. Periorbital areas with no swelling, redness, or edema. Neck: Trachea midline, no thyromegaly or masses palpated, and no cervical lymphadenopathy. Supple, full range of motion without nuchal rigidity, or vertebral point tenderness. No Meningismus. Chest/axilla: Normal chest wall appearance and motion. Nontender with no deformity. No lesions are appreciated. Cardiovascular: Regular rate and rhythm with a normal S1 and S2. No gallops, murmurs, or rubs. Normal PMI, no JVD. No pulse deficits. Respiratory: Lungs have equal breath sounds bilaterally, clear to auscultation and percussion. No rales, rhonchi or wheezes noted. No increased work of breathing, no retractions or nasal flaring. Abdomen/GI: Soft, non-tender, with normal bowel sounds. No distension or tympany. No guarding or rebound. No evidence of tenderness throughout. Skin: Warm, dry with normal turgor. Normal color with no rashes, no lesions, and no evidence of cellulitis. MS/ Extremity: Pulses equal, no cyanosis. Neurovascular intact. Full, normal range of motion. Neuro: Awake and alert, GCS 15, oriented to person, place, time, and situation. Cranial nerves II-XII grossly intact. Motor strength 5/5 in all extremities. Sensory grossly intact. Cerebellar exam normal. Normal gait. Psych: Awake, alert, with orientation to person, place and time. Behavior, mood, and affect are within normal limits. 09:09 Back: pain, that is moderate, that is severe, of the left low back and right low back, ROM is painful, with all movement, normal spinal alignment noted, CVA tenderness, is absent, vertebral tenderness, is not appreciated, muscle spasm, Straight leg raises: Unable to perform initially due to pain with supine and movement. Vital Signs: 09:07 Temp 98.7(TE); ph 09:30 BP 153 / 73; Pulse 73; Resp 18; Pulse Ox 98% on R/A; ph 10:32 BP 141 / 55; Pulse 63; Resp 18; Temp 97.2; Pulse Ox 96% on R/A; ph MDM: 11:02 Patient medically screened. kdr 13:32 Data reviewed: vital signs, nurses notes, lab test result(s), radiologic studies. kdr Counseling: I had a detailed discussion with the patient and/or guardian regarding: the historical points, exam findings, and any diagnostic results supporting the discharge/admit diagnosis, radiology results, the need for outpatient follow up. Special discussion: I discussed with the patient/guardian in detail that at this point there is no indication for admission to the hospital. It is understood, however, that if the symptoms persist or worsen the patient needs to return immediately for re-evaluation. 04/15 09:06 Order name: CT Lumbar Spine Wo Con; Complete Time: 10:06 kdr Administered Medications: 09:58 Drug: TORadol - Ketorolac 15 mg Route: IVP; Site: right antecubital; ph 11:00 Follow up: Response: No adverse reaction; Pain is decreased ph 09:58 Drug: Pepcid 20 mg Route: IVP; Site: right antecubital; ph 11:00 Follow up: Response: No adverse reaction ph 09:59 Drug: SOLU-Medrol 80 mg Route: IVP; Site: right antecubital; ph 11:00 Follow up: Response: No adverse reaction ph 10:00 Drug: Zofran (Ondansetron) 4 mg Route: IVP; Site: right antecubital; ph 11:00 Follow up: Response: No adverse reaction ph 10:00 Drug: Robaxin 500 mg Route: IVPB; Infused Over: 1 hrs; Site: right antecubital; ph 18:08 Follow up: Response: No adverse reaction; Pain is decreased; IV Status: Completed ph infusion; IV Intake: 100ml Disposition: 04/15/20 11:02 Discharged to Home. Impression: Low back pain, Muscle spasm of back, Muscle spasm. - Condition is Stable. - Discharge Instructions: Musculoskeletal Pain, Back Pain, Adult, [id number]. - Prescriptions for Ibuprofen 600 mg Oral Tablet - take 1 tablet by ORAL route every 6 hours As needed take with food; 30 tablet. Prednisone 20 mg Oral Tablet - take 1 tablet by ORAL route once daily for 5 days; 5 tablet. Zofran 4 mg Oral Tablet - take 1 tablet by ORAL route every 4-6 hours As needed; 10 tablet. Cyclobenzaprine 5 mg Oral Tablet - take 1 tablet by ORAL route 3 times per day As needed; 15 tablet. - Medication Reconciliation Form, Thank You Letter form. - Follow up: Private Physician; When: 2 - 3 days; Reason: If symptoms return, Further diagnostic work-up, Recheck today's complaints, Continuance of care, Re-evaluation by your physician. - Problem is new. - Symptoms have improved. Signatures: Dispatcher [employer] EDNishant Harris MD MD [facility] Nahomi Jin RN RN Crystal Gonzalez RN RN ph Corrections: (The following items were deleted from the chart) 11:12 11:02 04/15/2020 11:02 Discharged to Home. Impression: Low back pain; Muscle spasm of ph back; Muscle spasm. Condition is Stable. Forms are Medication Reconciliation Form, Thank You Letter, Antibiotic Education, Prescription Opioid Use. Follow up: Private Physician; When: 2 - 3 days; Reason: If symptoms return, Further diagnostic work-up, Recheck today's complaints, Continuance of care, Re-evaluation by your physician. Problem is new. Symptoms have improved. kdr
[2020-04-15 11:18] VITALS: BP 141/55; TEMP 97.2; O2SAT 96
== END 2020-04-15 11:12 | disposition home or self-care (01) ==
LOC: ER 08:42
DX: M54.5 Low back pain (principal); M62.830 Muscle spasm of back
CPT/HCPCS: 96365; 72131; 96375; 99284; 96366; J2930; J2405; J2800